=== PATIENT | male | born 2000 | race Caucasian/White ===

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

== ENCOUNTER 2021-09-23 01:31 | Emergency (ER) | payer BC ==
[~2021-09-23] VITALS: Ht 175 cm; Wt 97.0 kg
[2021-09-23] MEDS ORDERED: RX-MUPIROCIN (BACTROBAN) 2% OINT 22 GM TUBE TOP STA (02:02)
--- NOTE | 2021-09-23 02:04 | ED Upper Extremity ---
General Stated Complaint: DOG BIT LEFT HAND MIDDLE FINGER & WON'T QUIT BLEED Source: patient History of Present Illness Date Seen by Provider: Sep 23, 2021 Time Seen by Provider: 01:54 Initial Comments PT ARRIVES VIA POV FROM HOME WITH GRANDMOTHER STATES AT AROUND 1700 YESTERDAY AFTERNOON, HIS DOGS WERE FIGHTING, AND HE WAS TRYING TO SEPARATE THEM, AND ONE OF THE DOGS BIT THE END OF HIS LEFT MIDDLE FINGER DOG WAS A LARGE MIXED-BREED DOG--MASTIFF AND P[facility] DOGS ARE UP TO DATE ON ALL VACCINES--JUST HAD THEM UPDATED LAST WEEK NO OTHER INJURIES FROM THE INCIDENT NO PRIOR INJURIES TO THIS FINGER PT IS RIGHT HANDED NO PARESTHESIAS OR MOTOR DEFICITS NO CHRONIC MEDICAL PROBLEMS OTHER THAN BIPOLAR. PT IS NOT UP TO DATE ON TETANUS VACCINE PCP: DR. ARCHER Allergies and Home Medications Allergies Coded Allergies: amoxicillin (Unverified Adverse Reaction, Mild, RASH, 12/22/09) Patient Home Medication List Home Medication List Reviewed: Yes Ciprofloxacin HCl (Ciprofloxacin HCl) 500 Mg Tablet, 500 MG PO BID Prescribed by: ZA HAYS on 09/23/21236 Clindamycin HCl (Clindamycin HCl) 300 Mg Capsule, 300 MG PO QID Prescribed by: ZA HAYS on 09/23/21236 Hydrocodone/Acetaminophen (Hydrocodone-Acetamin 5-325 mg) 5 Mg-325 Mg Tablet, 1 EACH PO Q4-6 HOURS PRN for PAIN Prescribed by: ZA HAYS on 09/23/21237 Mupirocin (Mupirocin) 2 % Oint...g., 22 GM TP BID Prescribed by: ZA HAYS on 09/23/21236 Review of Systems Constitutional: no symptoms reported Musculoskeletal: see HPI Skin: see HPI Psychiatric/Neurological: No Symptoms Reported Past Ptophkm-Djiutz-Oyvplq Hx Immunizations Up To Date Tetanus Booster (TDap): Less than 5yrs PED Vaccines UTD: Yes Seasonal Allergies Seasonal Allergies: No Past Medical History Surgeries: Yes (COLONOSCOPY; CHOLECYSTECTOMY AGE 9 IN 2009) Gallbladder Respiratory: No Cardiac: Yes Heart Murmur Neurological: No Reproductive Disorders: No Sexually Transmitted Disease: No Genitourinary: No Gastrointestinal: Yes (CHOLECYSTECTOMY IN 2009 AT AGE 9) Gall Bladder Disease Musculoskeletal: No Endocrine: No HEENT: No Cancer: No Psychosocial: Yes (SELF DC'D LITHIUM 07/2021) Bipolar Blood Disorders: No Physical Exam Vital Signs Capillary Refill : Height, Weight, BMI Height: 5'9.00" Weight: 260lbs. oz. [id number]; BMI Method:Stated General Appearance: WD/WN, no apparent distress Hand: Left (LEFT MIDDLE FINGER, WITH PARTIAL NAIL AVULSION TO PROXIMAL NAIL--LESS THAN 1/4 OF NAIL IS AVULSED. DISTAL ASPECT OF NAIL IS INTACT. . SKIN OF CUTICLE OF NAIL IS AVULSED. TENDERNESS TO DISTAL PHALANX OF NAIL. SENSORY/VASCULAR INTACT. NO ACTIVE BLEEDING FROM WOUND AT THIS TIME. ) Neurologic/Psychiatric: alert, normal mood/affect, oriented x 3 Skin: normal color, warm/dry, tattoos/piercings, other ( ABOVE) Procedures/Interventions Splinting and Joint Reduction : Splint Application: Finger Progress/Results/Core Measures Results/Orders My Orders Orders - ZA HAYS DO Dipht,Pertuss(Acell),Tet Adult (Boostrix (09/23/21 02:15) Wound Dressing-Ed (09/23/21 02:02) Rx-Mupirocin 2% Oint (Rx-Bactroban) (09/23/21 02:02) Clindamycin Capsule (Cleocin Capsule) (09/23/21 02:15) Ciprofloxacin Tablet (Cipro Tablet) (09/23/21 02:15) Finger(S) (09/23/21 02:04) Rx-Hydrocodone/Apap 5-325 Mg (Rx-Vicodin (09/23/21 02:30) Ed Ortho/Other Supplies Order (09/23/21 02:27) Medications Given in ED Current Medications Medications Dose Ordered Sig/Aly Route Start Time Stop Time Status Last Admin Dose Admin Acetaminophen/ Hydrocodone Bitart 1 ea Q4H PRN PO 09/23/21 02:30 09/23/21 02:52 1 EA Clindamycin HCl 300 mg ONCE ONCE PO 09/23/21 02:15 09/23/21 02:16 DC 09/23/21 02:51 300 MG Diphtheria/ Tetanus/Acell Pertussis 0.5 ml ONCE ONCE IM 09/23/21 02:15 09/23/21 02:16 DC 09/23/21 02:50 0.5 ML Progress Progress Note : Progress Note DPT GIVEN WOUND CARE DONE GIVEN ORAL ANTIBIOTICS HERE AND SENT HOME WITH PAIN MEDICATION, WELL BACTROBAN ANTIBIOTIC. NO SUTURING OF WOUND IT IS A DOG BITE, NOT GAPING AND NOT BLEEDING. Diagnostic Imaging Comments FINGER XRAYS--TUFT FRACTURE--PENDING RADIOLOGIST REVIEW Reviewed: Reviewed by Me Departure Impression Primary Impression: Open wound of left middle finger due to dog bite Additional Impressions: OPEN TUFT FRACTURE OF LEFT MIDDLE FINGER PARTIAL NAIL AVULSION LEFT MIDDLE FINGER Srtfvegjgh-muaciigkz-ihbqalw (DPT) vaccination administered at current visit Disposition: HOME, SELF-CARE Condition: Stable Departure-Patient Inst. Decision time for Depature: 02:25 Referrals: LIS ARCHER MD (PCP/Family) Primary Care Physician TORRIE GANNON MD Patient Instructions: Animal Bites ED, Diphtheria and Tetanus Toxoids, and Acellular Pertussis Vaccine, [id number] Add. Discharge Instructions: CLEAN WITH ANTIBACTERIAL SOAP AND WATER TWICE A DAY APPLY ANTIBIOTIC OINTMENT AND FRESH DRESSING TWICE A DAY WEAR SPLINT AT ALL TIMES FOLLOW UP WITH DR. GANNON, ORTHOPEDIC SURGEON, THIS WEEK FOR FURTHER CARE Scripts Hydrocodone/Acetaminophen (Hydrocodone-Acetamin 5-325 mg) 5 Mg-325 Mg Tablet 1 EACH PO Q4-6 HOURS PRN for PAIN, #20 TAB Prov: ZA HAYS DO 09/23/21 Mupirocin (Mupirocin) 2 % Oint...g. 22 GM TP BID, #1 TUBE Prov: ZA HAYS DO 09/23/21 Clindamycin HCl (Clindamycin HCl) 300 Mg Capsule 300 MG PO QID for 7 Days, #28 CAP Prov: ZA HAYS DO 09/23/21 Ciprofloxacin HCl (Ciprofloxacin HCl) 500 Mg Tablet 500 MG PO BID, #14 TAB Prov: ZA HAYS DO 09/23/21 ZA HAYS DO Sep 23, 2021 02:04
[2021-09-23] MEDS ORDERED: CLINDAMYCIN 150 MG (CLEOCIN) CAP PO ONE (02:15)
[2021-09-23] MEDS ORDERED: CIPROFLOXACIN 500 MG (CIPRO) TABLET PO SCH (02:15)
[2021-09-23] MEDS ORDERED: TETANUS,DIPTH,PERTUSS P/F (BOOSTRIX) 0.5 ML VIAL IM ONE (02:15)
[2021-09-23] MEDS ORDERED: CLIN-144 PO (02:37)
[2021-09-23] MEDS ORDERED: CIPR500T5 PO (02:37)
[2021-09-23] MEDS ORDERED: MUPI22OI2 TP (02:37)
[2021-09-23] MEDS ORDERED: ACHD5005 PO (02:37)
[2021-09-23 03:00] VITALS: BP 144/85
--- NOTE | 2021-09-23 06:49 | Diagnostic Imaging Report ---
EXAMINATION: Left 3rd finger radiograph EXAM DATE: 09/23/2021 2:25 AM COMPARISON: None available. HISTORY: finger pain TECHNIQUE: 3 views FINDINGS: There is a minimally displaced, acute fracture of the distal phalanx of the 3rd digit. The joint spaces are normal. There is mild soft tissue swelling. IMPRESSION: 1. Soft tissue swelling and minimally displaced acute fracture of the distal phalanx of the 3rd finger. Dictated by: Dictated on workstation # [id number]
== END 2021-09-23 03:15 | disposition home or self-care (01) ==
LOC: EDUNIT# 01:31 → ER 01:35
DX: S62.623B Displaced fracture of middle phalanx of left middle finger, initial encounter for open fracture (principal); Z23 Encounter for immunization; Z28.310 Unvaccinated for COVID-19; W54.0XXA Bitten by dog, initial encounter
CPT/HCPCS: 29130; 73140; 90715